=== PATIENT | male | born 1970 | race Caucasian/White ===

== ENCOUNTER 2018-11-07 22:18 | Emergency (ER) | payer BC ==
[2018-11-08] MEDS: ACETAMINOPHEN 325 MG TAB PO (01:08)
== END 2018-11-08 02:39 | disposition home or self-care (01) ==
LOC: FTE 22:18
DX: S09.90XA Unspecified injury of head, initial encounter (principal); W22.01XA Walked into wall, initial encounter; Y92.9 Unspecified place or not applicable; Z87.891 Personal history of nicotine dependence
CPT/HCPCS: 70450; 99284-25